=== PATIENT | male | born 1975 | race African-American/Black ===

== ENCOUNTER 2020-07-02 20:16 | Emergency (ER) | payer SELFPAY ==
[~2020-07-02] VITALS: Ht 162.6 cm; Wt 70.5 kg
[2020-07-02 20:49] LABS: HEMATOCRIT 32.5 % (42.0-52.0); HEMOGLOBIN 9.5 g/dl (13.5-17.5); MEAN CORPUSCULAR HEMOGLOBIN 21.9 pg (27.0-33.0); MEAN CORPUSCULAR HGB CONC 29.2 g/dl (32.0-36.5); MEAN CORPUSCULAR VOLUME 74.9 fl (80.0-96.0); PLATELET COUNT, AUTOMATED 268 10^3/uL (150-450); RED BLOOD COUNT 4.34 10^6/uL (4.30-6.10); WHITE BLOOD COUNT 7.6 10^3/uL (4.0-10.0)
[2020-07-02 23:00] VITALS: BP 115/67
--- NOTE | 2020-07-03 08:20 | REP ---
INDICATION: palpitations COMPARISON: None. TECHNIQUE: Portable AP view of the chest FINDINGS: The mediastinum and cardiac silhouette are stable and within normal limits for portable technique. The lung astorga are clear without acute consolidation, effusion, or pneumothorax. Skeletal structures are intact. IMPRESSION: No acute cardiopulmonary process appreciated. <Electronically signed by Jens Alexander > 07/03/20 0877
--- NOTE | 2020-07-05 08:54 | ECGEPIP ---
[facility] - ED Test Date: 2020-07-02 Pat Name: GA MEDINA Department: Room: - Gender: Male [employer] Consultant: carissa : 1975 Requested By: SHWETHA Alvarado Order Number: [id number] Reading MD: Haylie Moran Measurements Intervals [place] Rate: 74 P: 74 MD: 153 QRS: -3 QRSD: 91 T: 38 QT: 384 QTc: 427 Interpretive Statements SINUS RHYTHM No prior Electronically Signed on 07-05-2020 8:53:32 EDT by Haylie Moran
== END 2020-07-02 23:10 | disposition home or self-care (01) ==
LOC: M ED 20:16
DX: F12.229 Cannabis dependence with intoxication, unspecified (principal); R00.2 Palpitations; F17.210 Nicotine dependence, cigarettes, uncomplicated

== ENCOUNTER 2020-10-25 13:10 | Emergency (ER) | payer SELFPAY ==
[~2020-10-25] VITALS: Ht 160 cm; Wt 75.7 kg
--- OUTSIDE RECORDS SUMMARY | 2020-10-25 13:21 | CCD ---
Author Author [facility] Organization [facility] Address Unknown Phone Unavailable Support Name Relationship Address [place] [address] PATRICIO ABDI Next Of Kin [address] [place] [address] Re-disclosure Warning The records that you are about to access may contain information from federally-assisted alcohol or drug abuse programs. If such information is present, then the following federally mandated warning applies: This information has been disclosed to you from records protected by federal confidentiality rules (42 CFR part 2). The federal rules prohibit you from making any further disclosure of this information unless further disclosure is expressly permitted by the written consent of the person to whom it pertains or as otherwise permitted by 42 CFR part 2. A general authorization for the release of medical or other information is NOT sufficient for this purpose. The Federal rules restrict any use of the information to criminally investigate or prosecute any alcohol or drug abuse patient.The records that you are about to access may contain highly sensitive health information, the redisclosure of which is protected by Article 27-F of the [facility] Public Health law. If you continue you may have access to information: Regarding HIV / AIDS; Provided by facilities licensed or operated by the [facility] Office of Mental Health; or Provided by the [facility] Office for People With Developmental Disabilities. If such information is present, then the following [facility] mandated warning applies: This information has been disclosed to you from confidential records which are protected by state law. State law prohibits you from making any further disclosure of this information without the specific written consent of the person to whom it pertains, or as otherwise permitted by law. Any unauthorized further disclosure in violation of state law may result in a fine or prison sentence or both. A general authorization for the release of medical or other information is NOT sufficient authorization for further disc losure. Insurance Providers Payer name Policy type / Coverage type Policy ID Covered democrat ID Covered democrat's relationship to maldonado Policy Maldonado Plan Information SELF PAY ONLY [id number]
--- OUTSIDE RECORDS SUMMARY | 2020-10-25 14:03 | CCD ---
Author Author [facility] Organization [facility] Address Unknown Phone Unavailable Support Name Relationship Address Phone KEYLA Next Of Kin [facility] [place] [address] PATRICIO ABDI Next Of Kin [address] [place] [address] Re-disclosure Warning The records that you are [...] is protected by Article 27-F of the [facility] Public Health law. If you continue you may have access to information: Regarding HIV / AIDS; Provided by facilities licensed or operated by the [facility] Office of Mental Health; or Provided by the [facility] Office for People With Developmental Disabilities. If such information is present, then the following [facility] mandated warning applies: This information has been [...] law may result in a fine or chcf sentence or both. A general authorization for the release of medical or other information is NOT sufficient authorization for further disc losure. Insurance Providers Payer name Policy type / Coverage type Policy ID Covered libertarian ID Covered libertarian's relationship to maldonado Policy Maldonado Plan Information SELF PAY ONLY [id number]
--- NOTE | 2020-10-25 14:25 | REP ---
INDICATION: chest pain. COMPARISON: Comparison chest x-ray July 02, 2020.. TECHNIQUE: Upright AP portable chest x-ray. FINDINGS: Monitoring electrodes are seen. The lungs are well inflated and free of infiltrate. Pleural angles are sharp. Nipple silhouettes project at the bases. Pulmonary vasculature is not increased. Heart size is normal. There are degenerative changes at the glenohumeral joints bilaterally. No acute bony abnormality. IMPRESSION: No active disease. <Electronically signed by Amari García > 10/25/20 [id number]
[2020-10-25 14:55] LABS: BLOOD UREA NITROGEN 12 MG/DL (7-18); CALCIUM LEVEL 9.4 MG/DL (8.5-10.1); CARBON DIOXIDE LEVEL 32 MEQ/L (21-32); CHLORIDE LEVEL 101 MEQ/L (98-107); CREATININE FOR GFR 1.19 MG/DL (0.70-1.30); GLOMERULAR FILTRATION RATE > 60.0 (>60); GLUCOSE, FASTING 80 MG/DL (70-100); LIPASE 87 U/L (73-393); POTASSIUM SERUM 4.3 MEQ/L (3.5-5.1); SODIUM LEVEL 138 MEQ/L (136-145)
[2020-10-25 15:13] LABS: BASO % 0.3 % (0.0-1.0); EOS # 0.5 10^3/uL (0.0-0.5); EOS % 9.3 % (0.0-3.0); HEMATOCRIT 36.9 % (42.0-52.0); HEMOGLOBIN 10.8 g/dl (13.5-17.5); LYMPH # 1.6 10^3/uL (1.5-5.0); LYMPH % 27.3 % (24.0-44.0); MEAN CORPUSCULAR HEMOGLOBIN 22.4 pg (27.0-33.0); MEAN CORPUSCULAR HGB CONC 29.3 g/dl (32.0-36.5); MEAN CORPUSCULAR VOLUME 76.4 fl (80.0-96.0); MONO # 0.5 10^3/uL (0.0-0.8); MONO % 8.8 % (2.0-8.0); NEUTROPHILS # 3.1 10^3/uL (1.5-8.5); PLATELET COUNT, AUTOMATED 229 10^3/uL (150-450); RED BLOOD COUNT 4.83 10^6/uL (4.30-6.10); WHITE BLOOD COUNT 5.8 10^3/uL (4.0-10.0)
[2020-10-25 17:17] LABS: CK-MB VALUE MASS 1.2 NG/ML (<3.6); TROPONIN I < 0.02 NG/ML (< 0.10)
[2020-10-25 17:18] LABS: CPK CREATINE PHOSPHOKINASE 389 U/L (39-308)
[2020-10-25 17:45] LABS: CK-MB VALUE MASS 1.2 NG/ML (<3.6); CPK CREATINE PHOSPHOKINASE 389 U/L (39-308); TROPONIN I < 0.02 NG/ML (< 0.10)
[2020-10-25 17:46] VITALS: BP 147/98
--- NOTE | 2020-10-25 19:46 | ECGEPIP ---
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
== END 2020-10-25 17:47 | disposition home or self-care (01) ==
LOC: M ED 13:10
DX: R10.13 Epigastric pain (principal); R51.9 Headache, unspecified; R06.02 Shortness of breath; F17.210 Nicotine dependence, cigarettes, uncomplicated

== ENCOUNTER → 2020-11-08 | Outpatient (CLI) | payer OTHER ==
--- NOTE | 2020-11-08 12:09 | REP ---
INDICATION: RADICULOPATHY COMPARISON: None. TECHNIQUE: Internal rotation, external rotation, and Y view. FINDINGS: Cortical irregularity and sclerosis along with subtle spurring is identified involving the calcified glenoid rim along with subtle subchondral heterogeneity and subtle flattening to the humeral head with marginal osteophyte formation. Subacromial space is normal. Acromioclavicular joint appears normal. No acute fracture or dislocation. 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 <Electronically signed by Jens Alexander > 11/08/20 [id number]
--- NOTE | 2020-11-08 12:11 | REP ---
INDICATION: RADICULOPATHY. COMPARISON: None. TECHNIQUE: AP, lateral, open mouth views of the cervical spine. FINDINGS: Alignment maintained and no evidence for acute fracture/compression injury is appreciated. Moderate/early advanced degenerative changes at C4-5, C5-6 and to a lesser extent C6-7 includes endplate sclerosis with marginal spurring and disc space narrowing. IMPRESSION: Moderate degenerative spondylosis at C4 through C7. <Electronically signed by Jens Alexander > 11/08/20 2212
== END ==
LOC: M WUC 11:24
PROVIDERS: ATTEND Physician Assistant
DX: M54.12 Radiculopathy, cervical region (principal); M50.30 Other cervical disc degeneration, unspecified cervical region; M19.011 Primary osteoarthritis, right shoulder

== ENCOUNTER 2021-10-30 13:25 | Emergency (ER) | payer OTHER ==
[~2021-10-30] VITALS: Ht 160 cm; Wt 81.6 kg
[2021-10-30] MEDS ORDERED: ASPIRIN 81 MG CHEW TABLET PO ONE (13:45)
[2021-10-30 13:58] LABS: BASO % 0.4 % (0.0-1.0); EOS # 0.5 10^3/uL (0.0-0.5); EOS % 7.1 % (0.0-3.0); HEMOGLOBIN 14.4 g/dl (13.5-17.5); LYMPH # 2.8 10^3/uL (1.5-5.0); LYMPH % 39.5 % (24.0-44.0); MEAN CORPUSCULAR HEMOGLOBIN 28.6 pg (27.0-33.0); MEAN CORPUSCULAR HGB CONC 32.7 g/dl (32.0-36.5); MEAN CORPUSCULAR VOLUME 87.5 fl (80.0-96.0); MONO # 0.7 10^3/uL (0.0-0.8); MONO % 9.5 % (2.0-8.0); NEUTROPHILS # 3.1 10^3/uL (1.5-8.5); NEUTROPHILS % 43.4 % (36.0-66.0); PLATELET COUNT, AUTOMATED 220 10^3/uL (150-450); RED BLOOD COUNT 5.03 10^6/uL (4.30-6.10); WHITE BLOOD COUNT 7.1 10^3/uL (4.0-10.0)
[2021-10-30 14:34] LABS: ALBUMIN 3.8 GM/DL (3.2-5.2); ALT/SGPT 25 U/L (12-78); BILIRUBIN,DIRECT < 0.1 MG/DL (0.0-0.2); BILIRUBIN,TOTAL 0.3 MG/DL (0.2-1.0); BLOOD UREA NITROGEN 13 MG/DL (7-18); CALCIUM LEVEL 8.9 MG/DL (8.5-10.1); CARBON DIOXIDE LEVEL 27 MEQ/L (21-32); CHLORIDE LEVEL 106 MEQ/L (98-107); CK-MB VALUE MASS 1.5 NG/ML (<3.6); CREATININE FOR GFR 1.13 MG/DL (0.70-1.30); GLOMERULAR FILTRATION RATE > 60.0 (>60); GLUCOSE, FASTING 106 MG/DL (70-100); LIPASE 67 U/L (73-393); MB/CK RELATIVE INDEX 0.34 (< OR =4); NT-PRO BNP < 5 PG/ML (<125); POTASSIUM SERUM 4.5 MEQ/L (3.5-5.1); SODIUM LEVEL 139 MEQ/L (136-145); THYROID STIMULATING HORMONE 0.642 uIU/ML (0.358-3.740); TOTAL PROTEIN 8.2 GM/DL (6.4-8.2)
[2021-10-30] MEDS ORDERED: ISOVUE-370 76% 100ML VIAL As Ordered ONE (14:49)
[2021-10-30 15:10] LABS: CK-MB VALUE MASS 1.1 NG/ML (<3.6); MB/CK RELATIVE INDEX 0.28 (< OR =4)
[2021-10-30 16:00] VITALS: BP 135/98
== END 2021-10-30 16:35 | disposition home or self-care (01) ==
LOC: M ED 13:25
DX: R07.9 Chest pain, unspecified (principal); R06.02 Shortness of breath; D64.9 Anemia, unspecified; F12.20 Cannabis dependence, uncomplicated
CPT/HCPCS: 36415; 71045; 71275; 80048; 80076; 82550; 82553; 83690; 83880; 84443; 84484; 85025; 93005; 93041; 94760; 99285; Q9967

== ENCOUNTER → 2023-07-16 | Outpatient (REF) | payer OTHER ==
[2023-07-16 18:07] LABS: PERCENT SATURATION 70.4 % (19.7-50.0)
[2023-07-16 18:16] LABS: BASO % 0.3 % (0.0-1.0); EOS # 0.2 10^3/uL (0.0-0.5); EOS % 3.1 % (0.0-3.0); HEMATOCRIT 45.3 % (42.0-52.0); HEMOGLOBIN 14.7 g/dl (13.5-17.5); LYMPH # 2.7 10^3/uL (1.5-5.0); LYMPH % 40.5 % (24.0-44.0); MEAN CORPUSCULAR HEMOGLOBIN 29.9 pg (27.0-33.0); MEAN CORPUSCULAR HGB CONC 32.5 g/dl (32.0-36.5); MEAN CORPUSCULAR VOLUME 92.1 fl (80.0-96.0); MONO # 0.5 10^3/uL (0.0-0.8); MONO % 7.9 % (2.0-8.0); NEUTROPHILS # 3.2 10^3/uL (1.5-8.5); NEUTROPHILS % 47.2 % (36.0-66.0); PLATELET COUNT, AUTOMATED 266 10^3/uL (150-450); RED BLOOD COUNT 4.92 10^6/uL (4.30-6.10); WHITE BLOOD COUNT 6.7 10^3/uL (4.0-10.0)
== END ==
LOC: M LABWUC 16:07
PROVIDERS: ATTEND Nurse Practitioner Family
DX: D50.9 Iron deficiency anemia, unspecified (principal)

== ENCOUNTER 2023-09-21 08:47 | Emergency (ER) | payer OTHER ==
[~2023-09-21] VITALS: Ht 160 cm; Wt 81.1 kg
[2023-09-21] MEDS ORDERED: BACI1TAB20 PO (08:55)
[2023-09-21 10:10] LABS: BASO % 0.4 % (0.0-1.0); EOS # 0.3 10^3/uL (0.0-0.5); HEMATOCRIT 35.6 % (42.0-52.0); HEMOGLOBIN 11.6 g/dl (13.5-17.5); LYMPH % 36.2 % (24.0-44.0); MEAN CORPUSCULAR HEMOGLOBIN 28.5 pg (27.0-33.0); MEAN CORPUSCULAR HGB CONC 32.6 g/dl (32.0-36.5); MEAN CORPUSCULAR VOLUME 87.5 fl (80.0-96.0); MONO # 0.5 10^3/uL (0.0-0.8); MONO % 8.2 % (2.0-8.0); NEUTROPHILS # 2.8 10^3/uL (1.5-8.5); PLATELET COUNT, AUTOMATED 290 10^3/uL (150-450); RED BLOOD COUNT 4.07 10^6/uL (4.30-6.10); WHITE BLOOD COUNT 5.6 10^3/uL (4.0-10.0)
[2023-09-21 10:24] LABS: INR 1.08; PROTHROMBIN TIME 13.7 SECONDS (12.5-14.5)
[2023-09-21 10:25] LABS: PARTIAL THROMBOPLASTIN TIME 26.7 SECONDS (24.8-34.2)
[2023-09-21 10:37] LABS: LIPASE 24 U/L (12-53)
[2023-09-21 10:39] LABS: ALBUMIN 3.6 G/DL (3.2-5.2); ALKALINE PHOSPHATASE 81 U/L (46-116); ALT/SGPT 29 U/L (7.0-40); AMYLASE 45 U/L (30-118); AST/SGOT 29 U/L (<34); BILIRUBIN,DIRECT < 0.1 MG/DL (<0.4); BILIRUBIN,TOTAL 0.3 MG/DL (0.3-1.2); TOTAL PROTEIN 7.5 G/DL (5.7-8.2)
[2023-09-21 10:43] LABS: RSV AMPLIFICATION NEGATIVE (NEGATIVE)
[2023-09-21 12:02] LABS: CPK CREATINE PHOSPHOKINASE 686 U/L (46-171); MB/CK RELATIVE INDEX 0.14 (< OR =4)
[2023-09-21] MEDS: NS 1,000 ML IV ONE (12:41)
[2023-09-21 13:09] LABS: CK-MB VALUE MASS 1.5 NG/ML (<3.6); CPK CREATINE PHOSPHOKINASE 707 U/L (46-171); MB/CK RELATIVE INDEX 0.21 (< OR =4)
[2023-09-21 14:56] VITALS: BP 140/82; TEMP 98.1; O2SAT 99
== END 2023-09-21 14:57 | disposition home or self-care (01) ==
LOC: M ED 08:47
DX: D64.9 Anemia, unspecified (principal); K64.9 Unspecified hemorrhoids

== ENCOUNTER 2024-01-24 07:59 | Day surgery (SDC) | payer OTHER ==
[~2024-01-24] VITALS: Ht 162.6 cm; Wt 81.6 kg
[~2024-01-24 07:59] MED LIST: BACI1TAB20 PO; FERR325T3 PO; THERTAB52 PO
[2024-01-24] MEDS: NS 1,000 ML IV ONE (08:52)
[2024-01-24 09:47] VITALS: TEMP 97.1
[2024-01-24] MEDS ORDERED: propofoL 200 MG/20 ML VIAL As Ordered ONE (10:09)
[2024-01-24] MEDS ORDERED: LIDOCAINE 2% 100MG/5ML SDV (FOR ANES.) As Ordered ONE (10:09)
[2024-01-24 10:15] VITALS: BP 127/93; O2SAT 100
== END 2024-01-24 10:30 | disposition home or self-care (01) ==
LOC: M OPP 07:59
PROVIDERS: ATTEND Surgery
DX: K92.1 Melena (principal); K64.1 Second degree hemorrhoids; D12.2 Benign neoplasm of ascending colon; K59.00 Constipation, unspecified; D64.9 Anemia, unspecified

== ENCOUNTER → 2024-01-31 | Outpatient (REF) | payer OTHER ==
[2024-01-31 11:51] LABS: HEMOGLOBIN A1c 5.4 % (4.0-6.0)
[2024-01-31 11:56] LABS: TOTAL IRON BINDING CAPACITY 370 UG/DL (250-425)
[2024-01-31 11:57] LABS: IRON (FE) 6 UG/DL (65-175); PERCENT SATURATION 1.6 % (19.7-50.0)
[2024-01-31 11:58] LABS: ALBUMIN 3.5 G/DL (3.2-5.2); ALKALINE PHOSPHATASE 82 U/L (46-116); ALT/SGPT 42 U/L (7.0-40); AST/SGOT 36 U/L (<34); BILIRUBIN,TOTAL 0.2 MG/DL (0.3-1.2); BLOOD UREA NITROGEN 8 MG/DL (9-23); CALCIUM LEVEL 8.7 MG/DL (8.5-10.1); CARBON DIOXIDE LEVEL 28 MMOL/L (20-31); CHLORIDE LEVEL 105 MMOL/L (98-107); CHOLESTEROL LEVEL 157 MG/DL (<200); CHOLESTEROL RISK RATIO 3.41 (<5); CREATININE FOR GFR 1.01 MG/DL (0.70-1.30); FERRITIN 3.8 NG/ML (10.5-307.3); GLOMERULAR FILTRATION RATE > 60.0 (>56); GLUCOSE, FASTING 98 MG/DL (60-100); LDL CHOLESTEROL 99.4 MG/DL (<100); POTASSIUM SERUM 4.3 MMOL/L (3.5-5.1); SODIUM LEVEL 138 MMOL/L (136-145); THYROID STIMULATING HORMONE 1.358 uIU/ML (0.55-4.78); TOTAL 25(OH) VITAMIN D 27.2 NG/ML (20.0-100.0); TOTAL PROTEIN 7.6 G/DL (5.7-8.2); TRIGLYCERIDES LEVEL 58 MG/DL (<150)
[2024-01-31 12:33] LABS: BASO % 0.4 % (0.0-1.0); EOS # 0.2 10^3/uL (0.0-0.5); EOS % 4.5 % (0.0-3.0); HEMATOCRIT 25.3 % (42.0-52.0); HEMOGLOBIN 7.7 g/dl (13.5-17.5); LYMPH # 1.6 10^3/uL (1.5-5.0); LYMPH % 33.6 % (24.0-44.0); MEAN CORPUSCULAR HEMOGLOBIN 24.8 pg (27.0-33.0); MEAN CORPUSCULAR HGB CONC 30.4 g/dl (32.0-36.5); MEAN CORPUSCULAR VOLUME 81.4 fl (80.0-96.0); MONO # 0.4 10^3/uL (0.0-0.8); MONO % 8.2 % (2.0-8.0); NEUTROPHILS # 2.6 10^3/uL (1.5-8.5); NEUTROPHILS % 52.7 % (36.0-66.0); PLATELET COUNT, AUTOMATED 285 10^3/uL (150-450); RED BLOOD COUNT 3.11 10^6/uL (4.30-6.10); WHITE BLOOD COUNT 4.9 10^3/uL (4.0-10.0)
[2024-01-31 16:22] LABS: HEPATITIS C VIRUS ABY INDEX < 0.02 INDEX (<0.8); HIV 1&2 SCREEN NEGATIVE (NEGATIVE)
== END ==
LOC: M LAB REF 10:29
PROVIDERS: ATTEND Physician Assistant
DX: E66.9 Obesity, unspecified (principal); E55.9 Vitamin D deficiency, unspecified; Z11.9 Encounter for screening for infectious and parasitic diseases, unspecified; K64.9 Unspecified hemorrhoids; D64.9 Anemia, unspecified

== ENCOUNTER → 2024-06-26 | Outpatient (REF) | payer OTHER ==
[2024-06-26 13:36] LABS: PERCENT SATURATION 12.1 % (19.7-50.0)
[2024-06-26 13:38] LABS: FERRITIN 36.7 NG/ML (10.5-307.3)
[2024-06-26 13:39] LABS: BASO % 0.2 % (0.0-1.0); EOS # 0.2 10^3/uL (0.0-0.5); EOS % 3.4 % (0.0-3.0); HEMATOCRIT 40.1 % (42.0-52.0); HEMOGLOBIN 12.4 g/dl (13.5-17.5); LYMPH # 1.7 10^3/uL (1.5-5.0); LYMPH % 34.1 % (24.0-44.0); MEAN CORPUSCULAR HEMOGLOBIN 26.5 pg (27.0-33.0); MEAN CORPUSCULAR HGB CONC 30.9 g/dl (32.0-36.5); MEAN CORPUSCULAR VOLUME 85.7 fl (80.0-96.0); MONO # 0.7 10^3/uL (0.0-0.8); MONO % 13.5 % (2.0-8.0); NEUTROPHILS # 2.5 10^3/uL (1.5-8.5); NEUTROPHILS % 48.6 % (36.0-66.0); PLATELET COUNT, AUTOMATED 219 10^3/uL (150-450); RED BLOOD COUNT 4.68 10^6/uL (4.30-6.10); WHITE BLOOD COUNT 5.1 10^3/uL (4.0-10.0)
== END ==
LOC: M LAB REF 12:04
PROVIDERS: ATTEND Physician Assistant
DX: D50.9 Iron deficiency anemia, unspecified (principal)

== ENCOUNTER 2024-09-17 09:23 | Emergency (ER) | payer OTHER ==
[~2024-09-17] VITALS: Ht 162.6 cm; Wt 41.3 kg
[2024-09-17 10:16] LABS: BASO % 0.2 % (0.0-1.0); EOS # 0.2 10^3/uL (0.0-0.5); EOS % 4.1 % (0.0-3.0); HEMATOCRIT 38.4 % (42.0-52.0); HEMOGLOBIN 12.7 g/dl (13.5-17.5); LYMPH % 54.4 % (24.0-44.0); MEAN CORPUSCULAR HEMOGLOBIN 29.1 pg (27.0-33.0); MEAN CORPUSCULAR HGB CONC 33.1 g/dl (32.0-36.5); MEAN CORPUSCULAR VOLUME 88.1 fl (80.0-96.0); MONO # 0.4 10^3/uL (0.0-0.8); MONO % 7.7 % (2.0-8.0); NEUTROPHILS # 1.8 10^3/uL (1.5-8.5); NEUTROPHILS % 33.4 % (36.0-66.0); PLATELET COUNT, AUTOMATED 241 10^3/uL (150-450); RED BLOOD COUNT 4.36 10^6/uL (4.30-6.10); WHITE BLOOD COUNT 5.4 10^3/uL (4.0-10.0)
[2024-09-17 10:27] LABS: INR 0.99; PROTHROMBIN TIME 13.4 SECONDS (12.5-14.5)
[2024-09-17 10:37] LABS: LIPASE 30 U/L (12-53)
[2024-09-17 10:38] LABS: CK-MB VALUE MASS 1.5 NG/ML (<3.6)
[2024-09-17 10:40] LABS: ALBUMIN 3.9 G/DL (3.2-5.2); ALKALINE PHOSPHATASE 91 U/L (40-129); ALT/SGPT 27 U/L (7.0-40); AST/SGOT 28 U/L (<34); BILIRUBIN,DIRECT < 0.1 MG/DL (<0.4); BILIRUBIN,TOTAL 0.3 MG/DL (0.3-1.2); BLOOD UREA NITROGEN 12 MG/DL (9-23); CALCIUM LEVEL 9.1 MG/DL (8.5-10.1); CARBON DIOXIDE LEVEL 28 MMOL/L (20-31); CHLORIDE LEVEL 108 MMOL/L (98-107); CREATININE FOR GFR 0.92 MG/DL (0.70-1.30); GLOMERULAR FILTRATION RATE > 60.0 (>56); GLUCOSE, FASTING 97 MG/DL (60-100); POTASSIUM SERUM 4.7 MMOL/L (3.5-5.1); SODIUM LEVEL 139 MMOL/L (136-145); TOTAL PROTEIN 8.6 G/DL (5.7-8.2)
[2024-09-17 10:50] LABS: CPK CREATINE PHOSPHOKINASE 372 U/L (46-171)
[2024-09-17 11:59] VITALS: TEMP 98.6
[2024-09-17 12:00] VITALS: BP 120/84; O2SAT 96
== END 2024-09-17 12:10 | disposition home or self-care (01) ==
LOC: M ED 09:23
DX: R07.9 Chest pain, unspecified (principal); F12.10 Cannabis abuse, uncomplicated

== ENCOUNTER 2024-10-29 18:24 | Emergency (ER) | payer OTHER ==
[~2024-10-29] VITALS: Ht 162.6 cm; Wt 86.3 kg
[2024-10-29 20:54] LABS: KETONE, URINE AUTO RFX TRACE mg/dL (NEGATIVE); LEUKOCYTE ESTERASE UR AUTO RFX NEGATIVE (NEGATIVE); MUCUS, URINE RFX SMALL (NEGATIVE); NITRITE, URINE AUTO RFX NEGATIVE (NEGATIVE); RBC, URINE AUTO RFX 0 /HPF (0-3); SQUAM EPITHELIAL CELL UR AURFX 0 /HPF (0-6); WBC, URINE AUTO RFX 1 /HPF (0-3)
[2024-10-29] MEDS: ACETAMINOPHEN 325 MG TAB PO ONE (21:21)
[2024-10-29 21:56] LABS: Trichomonas vaginalis (AMP) NOT DETECTED (NEGATIVE)
[2024-10-29 22:20] LABS: GC DNA AMPLIFICATION NEGATIVE (NEGATIVE)
[2024-10-30] MEDS: KETOROLAC 30 MG/ML 1ML VIAL IV ONE (00:04)
[2024-10-30] MEDS: NS (Normal Saline) 0.9% 1,000 ML IV ONE (00:04)
[2024-10-30 00:10] LABS: BASO % 0.2 % (0.0-1.0); EOS # 0.1 10^3/uL (0.0-0.5); EOS % 0.4 % (0.0-3.0); HEMATOCRIT 34.6 % (42.0-52.0); HEMOGLOBIN 11.5 g/dl (13.5-17.5); LYMPH % 11.9 % (24.0-44.0); MEAN CORPUSCULAR HEMOGLOBIN 28.8 pg (27.0-33.0); MEAN CORPUSCULAR HGB CONC 33.2 g/dl (32.0-36.5); MEAN CORPUSCULAR VOLUME 86.5 fl (80.0-96.0); MONO # 1.3 10^3/uL (0.0-0.8); MONO % 7.9 % (2.0-8.0); NEUTROPHILS % 76.4 % (36.0-66.0); PLATELET COUNT, AUTOMATED 291 10^3/uL (150-450)
[2024-10-30 00:24] LABS: ERYTHROCYTE SEDIMENTATION RATE > 130 mm/hr (0-20)
[2024-10-30 00:30] VITALS: BP 123/82
[2024-10-30 00:30] LABS: BLOOD UREA NITROGEN 10 MG/DL (9-23); CALCIUM LEVEL 8.9 MG/DL (8.5-10.1); CARBON DIOXIDE LEVEL 24 MMOL/L (20-31); CHLORIDE LEVEL 101 MMOL/L (98-107); CREATININE FOR GFR 1.07 MG/DL (0.70-1.30); GLOMERULAR FILTRATION RATE > 60.0 (>56); GLUCOSE, FASTING 103 MG/DL (60-100); POTASSIUM SERUM 3.6 MMOL/L (3.5-5.1); SODIUM LEVEL 136 MMOL/L (136-145)
[2024-10-30 00:37] LABS: PROCALCITONIN 0.62 ng/ml
[2024-10-30 00:57] LABS: C REACTIVE PROTEIN QUANTITATIV 30.81 MG/DL (<1.0)
[2024-10-30 01:08] LABS: MONO SCRN NEGATIVE (NEGATIVE)
[2024-10-30] MEDS: cefTRIAXone SOD 1 GM in DEXTROSE 5% (D5W) ADV/MINI-BAG 50 ML IV ONE (01:12)
[2024-10-30 02:00] VITALS: TEMP 98.4; O2SAT 96
[2024-10-30] MEDS ORDERED: ZITHTAB PO (02:04)
[2024-10-30] MEDS ORDERED: AMOX875T2 PO (02:04)
== END 2024-10-30 02:28 | disposition home or self-care (01) ==
LOC: M ED 18:24
DX: J18.1 Lobar pneumonia, unspecified organism (principal); F12.10 Cannabis abuse, uncomplicated; Z79.2 Long term (current) use of antibiotics
CPT/HCPCS: 70450; 71046; 71250; 80048; 81001; 84145; 85025; 85652; 86140; 86308; 87040; 87486; 87581; 87633; 87661; 87798; 87810; 87850; 87880; 96361; 96365; 96375; 99284; J0696; J1885

== ENCOUNTER → 2025-06-17 | Outpatient (REF) | payer OTHER ==
[~2025-06-17] MED LIST changes: +AMOX875T2 PO; +ZITHTAB PO
[2025-06-17 13:53] LABS: IRON (FE) 54.0 UG/DL (65-175); PERCENT SATURATION 21.3 % (19.7-50.0)
[2025-06-17 13:55] LABS: BASO # 0.0 10^3/uL (0.0-0.2); BASO % 0.5 % (0.0-1.0); EOS # 0.2 10^3/uL (0.0-0.5); EOS % 3.1 % (0.0-3.0); LYMPH # 3.0 10^3/uL (1.5-5.0); LYMPH % 48.4 % (24.0-44.0); MONO # 0.4 10^3/uL (0.0-0.8); MONO % 6.7 % (2.0-8.0); NEUTROPHILS # 2.5 10^3/uL (1.5-8.5); NEUTROPHILS % 41.3 % (36.0-66.0); PLATELET COUNT, AUTOMATED 219 10^3/uL (150-450)
== END ==
LOC: M LAB REF 12:36
PROVIDERS: ATTEND Physician Assistant
DX: D50.9 Iron deficiency anemia, unspecified (principal)

== ENCOUNTER 2025-07-26 20:05 | Emergency (ER) | payer OTHER ==
[~2025-07-26] VITALS: Ht 162.6 cm; Wt 97.4 kg
[2025-07-26 20:43] LABS: BASO # 0.0 10^3/uL (0.0-0.2); BASO % 0.2 % (0.0-1.0); EOS # 0.3 10^3/uL (0.0-0.5); EOS % 4.7 % (0.0-3.0); LYMPH # 2.8 10^3/uL (1.5-5.0); LYMPH % 46.4 % (24.0-44.0); MONO # 0.4 10^3/uL (0.0-0.8); MONO % 7.2 % (2.0-8.0); NEUTROPHILS # 2.5 10^3/uL (1.5-8.5); NEUTROPHILS % 41.2 % (36.0-66.0); PLATELET COUNT, AUTOMATED 246 10^3/uL (150-450)
[2025-07-26 20:56] LABS: CK-MB VALUE MASS 1.4 NG/ML (<3.6)
[2025-07-26 20:58] LABS: CPK CREATINE PHOSPHOKINASE 313 U/L (46-171); MB/CK RELATIVE INDEX 0.44 (< OR =4)
[2025-07-26 20:59] LABS: ALT/SGPT 25 U/L (7.0-40); AST/SGOT 22 U/L (<34); CALCIUM LEVEL 8.8 MG/DL (8.5-10.1); CARBON DIOXIDE LEVEL 27 MMOL/L (20-31); CHLORIDE LEVEL 105 MMOL/L (98-107); CREATININE FOR GFR 1.12 MG/DL (0.70-1.30); GLOMERULAR FILTRATION RATE 79.5 (>56); POTASSIUM SERUM 4.1 MMOL/L (3.5-5.1); SODIUM LEVEL 141 MMOL/L (136-145)
[2025-07-26] MEDS ORDERED: ISOVUE-370 76% 100 ML VIAL As Ordered ONE (21:32)
[2025-07-26 21:52] LABS: CK-MB VALUE MASS 1.7 NG/ML (<3.6); CPK CREATINE PHOSPHOKINASE 300 U/L (46-171); MB/CK RELATIVE INDEX 0.56 (< OR =4)
[2025-07-26 21:53] LABS: INR 0.98
[2025-07-26] MEDS: ASPIRIN 81 MG CHEWABLE TABLET PO ONE (22:24)
[2025-07-26 22:37] VITALS: BP 127/81; TEMP 99; O2SAT 98
== END 2025-07-26 22:38 | disposition home or self-care (01) ==
LOC: M ED 20:05
DX: R07.9 Chest pain, unspecified (principal); D64.9 Anemia, unspecified; F17.210 Nicotine dependence, cigarettes, uncomplicated; Z79.810 Long term (current) use of selective estrogen receptor modulators (SERMs)
CPT/HCPCS: 36415; 71046; 71275; 80048; 80076; 82550; 82553; 83690; 84484; 85025; 85610; 93005; 93041; 94760; 99285; Q9967